=== PATIENT | male | born 1965 | race Caucasian/White ===

== ENCOUNTER 2016-07-29 18:57 | Emergency (ER) | payer OTHER ==
[~2016-07-29] VITALS: Ht 172.7 cm; Wt 81.6 kg
[2016-07-29 18:59] VITALS: BP 178/80
--- NOTE | 2016-07-29 19:17 | ED GENERAL ADULT ---
History of Present Illness General Chief Complaint: Fall Stated Complaint: PT FELL AND HIT THE RN RADIATION ONCOLOGY ON THE RIGHT SD Vital Signs & Intake/Output Vital Signs & Intake/Output Vital Signs Date Time Temp Pulse Resp B/P Pulse O2 O2 Flow FiO2 Ox Delivery Rate 07/299 97.8 56 18 178/80 96 Room Air Allergies Coded Allergies: ibuprofen (Intermediate, HIVES 07/29/16) Triage Note: PT TO TRIAGE WITH C/O R RIB CAGE PAIN 8/10 S/P SLIPPED AND FELL, HIT R RIB CAGE ON RN RADIATION ONCOLOGY 3 DAYS AGO. NO OTHER COMPLAINTS, DENIES HEADSTRIKE, DENIES BLOOD THINNERS. VSS. Past History Travel History Traveled to [place] past 21 day No Medical History Endocrine: diabetes Psychosocial History What is your primary language [place] Tobacco Use: Never used Illicit Drug Use: marijuana Progress Plan of Care: Orders Procedure Date/time Status XRY-RIBS UNILATERAL-RIGHT 07/30 1911 Active Departure Departure Condition: Stable Referrals: UNKNOWN (PCP/Family) Departure Forms: Customer Survey General Discharge Information
--- NOTE | 2016-07-29 19:33 | ED MVC/FALL/TRAUMA COMPLAINT ---
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 Source: patient Exam Limitations: no limitations Vital Signs & Intake/Output Vital Signs & Intake/Output Vital Signs Date Time Temp Pulse Resp B/P Pulse O2 O2 Flow FiO2 Ox Delivery Rate 07/29 1859 97.8 56 18 178/80 96 Room Air Allergies Coded Allergies: ibuprofen (Intermediate, HIVES 07/29/16) Reconcile Medications Canagliflozin (Invokana) 300 MG TABLET 1 TAB PO DAILY DM (Reported) Hydrocodone/Acetaminophen (Hydrocodon-Acetaminophen 5-325) 5 MG-325 MG TABLET 1-2 TAB PO Q4-6 PRN PRN pain Methadone HCl 10 MG/5 ML SOLUTION 90 MG PO DAILY MENTAL HEALTH (Reported) Triage Note: PT TO TRIAGE WITH C/O R RIB CAGE PAIN 12/21 S/P SLIPPED AND FELL, HIT R 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 NO OTHER COMPLAINTS, DENIES HEADSTRIKE, DENIES BLOOD THINNERS. VSS. Triage Nurses Notes Reviewed? yes Onset: Abrupt Duration: day(s): (few), constant, continues in ED Timing: recent history Severity: moderate, severe Injuries/Fall Location: chest Method of Injury: fall Loss of Consciousness: no loss of consciousness HPI: 51-year-old male comes into emergency room for further evaluation of right-sided rib pain. Patient reports that he fell forward onto the snowblower and hit his right ribs a few days ago. She has been having pain since then. Denies any abdominal pain. Denies any head injury or neck pain. Denies any pain or injury and rales on his body. Denies any other associated symptoms at this time (TARIK WAGNER) Past History Travel History Traveled to [place] past 21 day No Medical History Any Pertinent Medical History? see below for history Endocrine: diabetes Surgical History Surgical History: non-contributory Psychosocial History What is your primary language Citizen Of [place] Tobacco Use: Never used Illicit Drug Use: marijuana Family History Hx Contributory? No (TARIK WAGNER) Review of Systems Review of Systems Constitutional: Reports: no symptoms. Eyes: Reports: no symptoms. Ears, Nose, Throat, Mouth: Reports: no symptoms. Respiratory: Reports: no symptoms. Cardiovascular: Reports: no symptoms. Gastrointestinal/Abdominal: Reports: no symptoms. Genitourinary: Reports: no symptoms. Musculoskeletal: Reports: see HPI. Skin: Reports: no symptoms. Neurological/Psychological: Reports: no symptoms. All Other Systems: Reviewed and Negative (TARIK WAGNER) Physical Exam Physical Exam General Appearance: well developed/nourished, no apparent distress, alert, awake Head: atraumatic, normal appearance Eyes: Bilateral: normal appearance, EOMI. Ears, Nose, Throat, Mouth: hearing grossly normal, moist mucous membrane Neck: normal inspection, full range of motion Respiratory: normal breath sounds, no respiratory distress, chest wall tenderness right Cardiovascular: regular rate/rhythm Gastrointestinal: normal bowel sounds, soft, non-tender, no epigastric right upper quadrant Back: normal inspection Extremities: normal range of motion Neurologic/Psych: awake, alert, oriented x 3 Skin: intact, normal color Core Measures ACS in differential dx? No Severe Sepsis Present: No Septic Shock Present: No (TARIK WAGNER) Progress Differential Diagnosis: abd injury, C/T/L spine injury, ext injury, ICH, pelvis injury, pnemothorax, spinal cord injury, rib fracture or rib contusion Plan of Care: Orders Procedure Date/time Status XRY-RIBS UNILATERAL-RIGHT 07/30 1911 Active Diagnostic Imaging: Viewed by Me: Radiology Read. Discussed w/RAD: Radiology Read. Radiology Impression: SERVICE DATE: 07/29/16 EXAM TYPE: CAT - CT CHEST WO IV CONTRAST EXAMINATION: CT CHEST WITHOUT CONTRAST CLINICAL INFORMATION: Right lower rib pain after fall. COMPARISON: Same day chest and rib radiographs. TECHNIQUE: Contiguous axial thin section helical images of the chest were performed without contrast. The data set was reformatted in the coronal and sagittal planes and reviewed on an independent workstation. DLP: 367 mGy-cm. FINDINGS: The heart is of normal size. There is no pericardial effusion. There is neither mediastinal, hilar nor axillary lymphadenopathy. There are no chest wall masses. Review of lung windows demonstrates that there are neither pleural effusions nor pneumothoraces. There are no consolidations. There is bibasilar atelectasis along with scarring or atelectasis within the right middle lobe. There are no pulmonary parenchymal nodules. Images of the upper abdomen demonstrate that the liver is of normal size and diffuse decreased attenuation without focal lesions. Normal adrenal glands are identified. Incidental note is made of an extrarenal pelvis to the left kidney. Bone windows: Neither sclerotic nor lytic bone lesions are identified. IMPRESSION: Bibasilar and right middle lobe atelectasis. No consolidations. No discernible rib fractures. Hepatic steatosis. DICTATED BY: NYDIA SOOD MD DATE/TIME DICTATED:07/29/162048 HAIR DRESSER:CLAUDIO DATE/TIME TRANSCRIBED:07/29/162048 CONFIDENTIAL, DO NOT COPY WITHOUT APPROPRIATE AUTHORIZATION., SERVICE DATE: 07/29/16 EXAM TYPE: RAD - XRY-RIBS UNILATERAL-RIGHT EXAMINATIONS: CHEST 1 VIEW AND RIGHT RIBS CLINICAL INFORMATION: Right-sided rib pain. COMPARISON: None. TECHNIQUE: A PA radiograph of the chest was obtained in addition to several views of the right ribs. FINDINGS: The cardiac silhouette is not enlarged. The mediastinal and hilar contours are unremarkable. There is blunting of the right lateral costophrenic angle. There is minimal airspace disease at the right lung base. The osseous structures are unremarkable. Specifically, no rib fractures are identified. IMPRESSION: No rib fractures identified. Blunting of the right lateral costophrenic angle which could correspond to pleural thickening or a small pleural effusion. There is a small focus of airspace disease at the right lung base. DICTATED BY: NYDIA SOOD MD DATE/TIME DICTATED:07/29/161937 (TARIK WAGNER) Departure Departure Disposition: HOME OR SELF CARE Condition: Stable Clinical Impression Primary Impression: Contusion of rib on right side Referrals: UNKNOWN (PCP/Family) Additional Instructions: Take Vicodin for pain. Follow-up with your primary care doctor. Return if any concerns worsening symptoms. Follow-up with your primary care physician this week. Return to the emergency room at any time sooner if you have worsening of your symptoms or any other concerns. Please note that there might be incidental findings in your evaluation that are unrelated to the current emergency department visit. Please notify your primary care doctor about this emergency department visit in order to obtain and review all of the testing performed so that these incidental findings can be monitored as needed. If you were prescribed a narcotic use caution as this medication is highly addictive and will make you drowsy use for breakthrough pain only. No driving, drinking alcohol or operating machinary when taking. If you had an x-ray performed, please understand that some fractures may not be seen on the initial set of x-rays. If your symptoms persist you might need a repeat set of x-rays to check for such a fracture. If you had a laceration evaluated, please understand that foreign bodies such as glass or wood may not be visible to the naked eye or on plain x-rays. If the wound becomes red, swollen, increasingly more painful or if there is any drainage from the wound, please have it reevaluated by a physician for the possibility of a retained foreign body. Departure Forms: Customer Survey General Discharge Information Prescriptions: Current Visit Scripts Hydrocodone/Acetaminophen (Hydrocodon-Acetaminophen 5-325) 1-2 TAB PO Q4-6 PRN PRN pain #15 TAB Comments 07/29/2016 9:11:10 PM Patient clinically looks well. Patient is nontoxic appearing. Patient has no evidence of acute trauma. Atelectasis seen on the CT scan. Follow-up with primary care doctor. No abdominal pain and exam. (TARIK WAGNER) PA/FISH BAIT PICKER Co-Sign Statement Statement: ED Attending supervision documentation- [] I saw and evaluated the patient. I have also reviewed all the pertinent lab results and diagnostic results. I agree with the findings and the plan of care as documented in the PA's/FISH BAIT PICKER's documentation. [X] I have reviewed the ED Record and agree with the PA's/FISH BAIT PICKER's documentation. [] Additions or exceptions (if any) to the PAs/FISH BAIT PICKER's note and plan are summarized below: [] (SHARAN DOMÍNGUEZ DO
--- NOTE | 2016-07-29 19:43 | RADIOLOGY REPORT ---
EXAMINATIONS: CHEST 1 VIEW AND RIGHT RIBS CLINICAL INFORMATION: Right-sided rib pain. COMPARISON: None. TECHNIQUE: A PA radiograph of the chest was obtained in addition to several views of the right ribs. FINDINGS: The cardiac silhouette is not enlarged. The mediastinal and hilar contours are unremarkable. There is blunting of the right lateral costophrenic angle. There is minimal airspace disease at the right lung base. The osseous structures are unremarkable. Specifically, no rib fractures are identified. IMPRESSION: No rib fractures identified. Blunting of the right lateral costophrenic angle which could correspond to pleural thickening or a small pleural effusion. There is a small focus of airspace disease at the right lung base.
[2016-07-29] MEDS ORDERED: INVOKANA300 M1 PO (19:51)
[2016-07-29] MEDS ORDERED: METHADONE10 MG/5 M2 PO (19:52)
--- NOTE | 2016-07-29 20:58 | CT SCAN REPORT ---
EXAMINATION: CT CHEST WITHOUT CONTRAST CLINICAL INFORMATION: Right lower rib pain after fall. COMPARISON: Same day chest and rib radiographs. TECHNIQUE: Contiguous axial thin section helical images of the chest were performed without contrast. The data set was reformatted in the coronal and sagittal planes and reviewed on an independent workstation. DLP: 367 mGy-cm. FINDINGS: The heart is of normal size. There is no pericardial effusion. There is neither mediastinal, hilar nor axillary lymphadenopathy. There are no chest wall masses. Review of lung windows demonstrates that there are neither pleural effusions nor pneumothoraces. There are no consolidations. There is bibasilar atelectasis along with scarring or atelectasis within the right middle lobe. There are no pulmonary parenchymal nodules. Images of the upper abdomen demonstrate that the liver is of normal size and diffuse decreased attenuation without focal lesions. Normal adrenal glands are identified. Incidental note is made of an extrarenal pelvis to the left kidney. Bone windows: Neither sclerotic nor lytic bone lesions are identified. IMPRESSION: Bibasilar and right middle lobe atelectasis. No consolidations. No discernible rib fractures. Hepatic steatosis.
[2016-07-29] MEDS ORDERED: HYDROCODON-ACE1 EAC2 PO (21:08)
== END 2016-07-29 20:29 ==
LOC: ERH 18:57
DX: S20.211A Contusion of right front wall of thorax, initial encounter (principal); W00.0XXA Fall on same level due to ice and snow, initial encounter
CPT/HCPCS: 71100-RT